=== PATIENT | female | born 1955 | race American Indian/Alaskan Native ===

== ENCOUNTER 2019-03-01 10:32 | Day surgery (SDC) | payer OTHER ==
[~2019-03-01 10:32] MED LIST: ABAT250V; ASPI325 PO; ATEN25 PO; CYCL10 PO; Desyrel150 MG PO; FAMO20 PO; FERR325 PO; HYDACE7.5 PO; LIDO5TP TOP; LORTAB 10-3251 EACH PO; Neurontin300 MG PO; SLEEPING PILL
--- NOTE | 2019-03-01 11:02 | NUR ---
03/01/19 1102 Jayda Soriano PT PRESENTED TO [facility] AND STATED SHE WAS HAVING A CERVIVAL EPIDURAL DONE TODAY. SHE WAS SCHEDULED FOR AN EPIDURAL INJECTION. SHE HAD AN APPROVAL OF MEDICAL COVERAGE FROM [employer] FOR A CERVICAL INJECTION. DECEMBER SPOKE WITH DANELLE AND SHE STATED SHE SHOULD HAVE SCHEDULED THE PATIENT FOR A CERVICAL. PT REQUESTED TO BE RESCHEDULED BECAUSE SHE DRANK JUICE AT 1000 TODAY AND DOES NOT HAVE A RIDE WITH HER, SHE WAS ALSO UNABLE TO CONTACT A RIDE. SHE WAS ADVISED THAT [facility] WILL CONTACT HER NEXT WEEK TO RESCHEDULE THE APPT.
== END 2019-03-01 10:47 | disposition home or self-care (01) ==
LOC: ORSCSDS 10:32
DX: M48.02 Spinal stenosis, cervical region (principal); Z53.9 Procedure and treatment not carried out, unspecified reason
CPT/HCPCS: J1040

== ENCOUNTER 2019-03-15 11:41 | Day surgery (SDC) | payer OTHER, SELFPAY ==
[~2019-03-15] VITALS: Ht 172.7 cm; Wt 56.2 kg
== END 2019-03-15 13:07 | disposition home or self-care (01) ==
LOC: ORSCSDS 11:41
PROVIDERS: Anesthesiology
PROC: 3E0R33Z Introduction of Anti-inflammatory into Spinal Canal, Percutaneous Approach (ICD-10-PCS; principal; 2019-03-15 12:30)
DX: M54.12 Radiculopathy, cervical region (principal); M48.02 Spinal stenosis, cervical region; F32.9 Major depressive disorder, single episode, unspecified; I10 Essential (primary) hypertension; K21.9 Gastro-esophageal reflux disease without esophagitis; E78.00 Pure hypercholesterolemia, unspecified; F17.210 Nicotine dependence, cigarettes, uncomplicated; Z79.899 Other long term (current) drug therapy
CPT/HCPCS: J1040; J2001; J2250; J3010

== ENCOUNTER → 2019-03-28 | Outpatient (CLI) | payer OTHER ==
[2019-03-29 07:13] LABS: Candida species (DNA Probe) Negative (NEGATIVE); G. vaginalis (DNA Probe) Positive (NEGATIVE); T. vaginalis (DNA Probe) Negative (NEGATIVE)
[2019-03-31 14:07] LABS: HPV 16 Negative (Negative); HPV 18 Negative (Negative); HPV OTHER HR TYPES Positive (Negative)
== END | disposition home or self-care (01) ==
LOC: LAB SHORT 16:22 → LAB 16:22
PROVIDERS: Family Medicine
DX: Z01.419 Encounter for gynecological examination (general) (routine) without abnormal findings (principal); R10.30 Lower abdominal pain, unspecified
CPT/HCPCS: 87480; 87510; 87624; 87660; G0145

== ENCOUNTER → 2019-05-31 | Outpatient (CLI) | payer OTHER ==
[2019-05-31 10:56] LABS: Alanine Aminotransfer (ALT/SGP 11 U/L (12-78); Albumin, Blood 2.9 g/dL (3.4-5.0); Albumin/Globulin Ratio 0.9 (0.8-1.8); Alk Phos 138 U/L (50-136); Anion Gap 6 mmol/L (6-16); Aspartate Aminotrans (AST/SGOT 12 U/L (12-37); Bilirubin, Total 0.2 mg/dL (0.1-1.0); Blood Urea Nitrogen 8 mg/dL (8-24); Bun/Creatinine Ratio 12.5 (12.0-20.0); CO2, Blood 27 mmol/L (21-32); Calcium, Blood 8.8 mg/dL (8.5-10.1); Chloride, Blood 105 mmol/L (98-108); Creatinine, Blood 0.64 mg/dL (0.40-1.00); Globulin, Blood 3.3 g/dL (2.2-4.0); Glomerular Filtration Rate >60 (60-); Glucose, Blood 73 mg/dL (70-99); Potassium, Blood 3.8 mmol/L (3.5-5.5); Sodium, Blood 138 mmol/L (136-145); Total Protein, Blood 6.2 g/dL (6.4-8.2)
== END | disposition home or self-care (01) ==
LOC: LAB 10:03 → LAB SHORT 10:03
PROVIDERS: Internal Medicine Hematology & Oncology
DX: M81.0 Age-related osteoporosis without current pathological fracture (principal)
CPT/HCPCS: 80053

== ENCOUNTER → 2020-02-08 | Outpatient (CLI) | payer OTHER | END | disposition home or self-care (01) | LOC: LAB SHORT 15:41 → LAB 15:41 | DX: L98.9 Disorder of the skin and subcutaneous tissue, unspecified (principal) | CPT/HCPCS: 88305 ==

== ENCOUNTER → 2020-05-01 | Outpatient (CLI) | payer OTHER ==
[2020-05-02 17:10] LABS: HPV 16 Negative (Negative); HPV 18 Negative (Negative); HPV OTHER HR TYPES Positive (Negative)
== END | disposition home or self-care (01) ==
LOC: LAB 13:41 → LAB SHORT 13:41
PROVIDERS: Family Medicine
DX: Z12.4 Encounter for screening for malignant neoplasm of cervix (principal); Z11.51 Encounter for screening for human papillomavirus (HPV)
CPT/HCPCS: 87624; 87625; G0123

== ENCOUNTER 2020-06-17 13:45 | Observation (INO) | payer OTHER ==
[~2020-06-17] VITALS: Ht 170.2 cm; Wt 58.5 kg
[~2020-06-17 13:45] MED LIST changes: -FERR325 PO; +FERSU300 PO
[2020-06-17 14:27] LABS: BASOPHILS ABSOLUTE AUTO 0.02 K/mm3 (0.00-0.23); BASOPHILS PERCENT AUTO 0 % (0-2); EOSINOPHILS ABSOLUTE AUTO 0.29 K/mm3 (0.00-0.68); EOSINOPHILS PERCENT AUTO 3 % (0-6); IMMATURE GRAN ABSOLUTE AUTO 0.02 K/mm3 (0.00-0.10); IMMATURE GRAN PERCENT AUTO 0 % (0-1); LYMPHOCYTES PERCENT AUTO 23 % (21-46); MONOCYTES ABSOLUTE AUTO 0.49 K/mm3 (0.16-1.47); MONOCYTES PERCENT AUTO 6 % (4-13); Mean Corpuscular HGB Conc 23.4 g/dL (31.5-36.5); Mean Corpuscular Volume 64 fL (80-100); NEUTROPHILS ABSOLUTE AUTO 5.84 K/mm3 (1.96-9.15); NEUTROPHILS PERCENT AUTO 68 % (41-73); NRBC ABSOLUTE 0.03 K/mm3 (0.00-0.02); NRBC Auto 0.3 /100 WBC (0.0-0.2); Platelet Count 202 K/mm3 (150-400); RDW Coefficient Variation 21.9 % (11.7-14.2); RDW Standard Deviation 49.1 fL (35.1-46.3); Red Blood Cell Count 2.26 M/mm3 (3.80-5.20); White Blood Cell Count 8.66 K/mm3 (4.00-11.30)
[2020-06-17 14:30] LABS: Hematocrit 14.5 % (33.0-51.0); Hemoglobin 3.4 g/dL (11.5-16.0)
[2020-06-17 14:38] LABS: Alanine Aminotransfer (ALT/SGP 8 U/L (12-78); Albumin, Blood 3.2 g/dL (3.4-5.0); Albumin/Globulin Ratio 0.9 (0.8-1.8); Alk Phos 127 U/L (50-136); Anion Gap 7 mmol/L (6-16); Aspartate Aminotrans (AST/SGOT 10 U/L (12-37); Bilirubin, Total 0.3 mg/dL (0.1-1.0); Blood Urea Nitrogen 9 mg/dL (8-24); Bun/Creatinine Ratio 15.4 (12.0-20.0); CO2, Blood 22 mmol/L (21-32); Calcium, Blood 8.8 mg/dL (8.5-10.1); Chloride, Blood 109 mmol/L (98-108); Creatinine, Blood 0.58 mg/dL (0.40-1.00); Globulin, Blood 3.6 g/dL (2.2-4.0); Glomerular Filtration Rate >60 (60-); Glucose, Blood 112 mg/dL (70-99); Sodium, Blood 138 mmol/L (136-145); Total Protein, Blood 6.8 g/dL (6.4-8.2)
[2020-06-17] MEDS ORDERED: TRAZ150T57 PO (15:26)
[2020-06-17] MEDS ORDERED: Cymbalta30 MG PO (15:26)
[2020-06-17] MEDS ORDERED: NEURONTIN600 MG PO (15:26)
[2020-06-17] MEDS ORDERED: OMEP20ER PO (15:26)
[2020-06-17 15:40] LABS: RETICULOCYTE COUNT PERCENT 1.32 % (0.50-2.50)
[2020-06-17 15:49] LABS: Percent Saturation 1.8 % (15.0-50.0)
[2020-06-17 15:56] LABS: International Normalized Ratio 0.98; Prothrombin Time Results 10.5 Sec (9.7-11.5)
[2020-06-17 17:06] LABS: Source, Urine Clean Catch
[2020-06-17 17:11] LABS: Bilirubin, Urine Neg (Neg); Blood, Urine Neg (Neg); Glucose Qualitative, Urine Neg (Neg); Ketones, Urine Neg (Neg); Leukocyte Esterase, Urine 3+ (Neg); Nitrite, Urine Neg (Neg); Protein, Urine Neg (Neg); Urobilinogen, Urine NORM (Normal)
[2020-06-17 17:16] LABS: Appearance, Urine Clear (Clear); Bacteria Mod /hpf; Color, Urine Yellow (P-Yellow); Red Blood Cells, Urine 0-2 /hpf (0-2); Squamous Epithelial Cells Few /hpf (Few)
--- NOTE | 2020-06-17 18:22 | NUR ---
SHIFT SUMMARY PT ADMITTED TO UNIT THIS AFTERNOON. PT ALERT AND ORIENTED. VS STABLE. 02 SATS REMAIN ABOVE 90% ON 2L NC. BP STABLE. HR NSR. PT DENIES ANY PAIN. PT COMPLAINS OF DIZZINESS UPON AMBULATION. FIRST UNIT OF 4 PRBC INFUSING PER ORDERS. PT ORIENTED TO ROOM/UNIT. WILL CONTINUE TO MONITOR CLOSELY AND REPORT TO ONCOMING RN. CALL LIGHT IN REACH. PT CALLING APPROPRIATELY.
[2020-06-18 00:24] LABS: Hematocrit 19.8 % (33.0-51.0)
[2020-06-18 00:28] LABS: Hemoglobin 5.6 g/dL (11.5-16.0)
[2020-06-18 05:33] LABS: Albumin, Blood 3.3 g/dL (3.4-5.0); Anion Gap 5 mmol/L (6-16); Blood Urea Nitrogen 6 mg/dL (8-24); Bun/Creatinine Ratio 10.7 (12.0-20.0); CO2, Blood 27 mmol/L (21-32); Calcium, Blood 8.7 mg/dL (8.5-10.1); Chloride, Blood 105 mmol/L (98-108); Creatinine, Blood 0.56 mg/dL (0.40-1.00); Glomerular Filtration Rate >60 (60-); Glucose, Blood 92 mg/dL (70-99); Phosphorus, Blood 2.3 mg/dL (2.5-4.9); Potassium, Blood 3.5 mmol/L (3.5-5.5); Sodium, Blood 137 mmol/L (136-145)
[2020-06-18 05:48] LABS: BASOPHILS ABSOLUTE AUTO 0.12 K/mm3 (0.00-0.23); BASOPHILS PERCENT AUTO 1 % (0-2); EOSINOPHILS ABSOLUTE AUTO 0.29 K/mm3 (0.00-0.68); EOSINOPHILS PERCENT AUTO 3 % (0-6); Hematocrit 26.3 % (33.0-51.0); Hemoglobin 7.8 g/dL (11.5-16.0); IMMATURE GRAN ABSOLUTE AUTO 0.03 K/mm3 (0.00-0.10); IMMATURE GRAN PERCENT AUTO 0 % (0-1); LYMPHOCYTES ABSOLUTE AUTO 1.43 K/mm3 (0.84-5.20); LYMPHOCYTES PERCENT AUTO 15 % (21-46); MONOCYTES ABSOLUTE AUTO 0.76 K/mm3 (0.16-1.47); MONOCYTES PERCENT AUTO 8 % (4-13); Mean Corpuscular HGB 21.5 pg (26.0-34.0); Mean Corpuscular HGB Conc 29.7 g/dL (31.5-36.5); NEUTROPHILS ABSOLUTE AUTO 7.16 K/mm3 (1.96-9.15); NEUTROPHILS PERCENT AUTO 73 % (41-73); NRBC ABSOLUTE 0.05 K/mm3 (0.00-0.02); NRBC Auto 0.5 /100 WBC (0.0-0.2); Platelet Count 187 K/mm3 (150-400); RDW Coefficient Variation 25.3 % (11.7-14.2); RDW Standard Deviation 65.2 fL (35.1-46.3); Red Blood Cell Count 3.63 M/mm3 (3.80-5.20); White Blood Cell Count 9.79 K/mm3 (4.00-11.30)
[2020-06-18 05:49] LABS: Mean Corpuscular Volume 73 fL (80-100)
--- NOTE | 2020-06-18 06:24 | NUR ---
SHIFT SUMMARY PT WAS AWAKE AND ORIENTED T/O THE NIGHT. 4 UNITS OF PRBC WAS ORDERED, HGB 5.6 AFTER FIRST TWO UNITS. INIATED SECOND ORDER OF 2 MORE UNITS. LAST UNIT FINISHING AROUND [id number]. ALL INFUSIONS HAVE BEEN UNREMARKABLE, PT STATED NO PAIN OR REACTION SYMPTOMS. AFTER SECOND INFUSION, CRACKLES WERE HEARD IN THE LOWER WAHL OF BOTH LUNFS. 40MG FUROSEMIDE IV WAS GIVEN, AFTER THIRD INFISION LUNG SOUNDS WERE CLEAR. BP AND HR REMAINED STABLE T/O NIGHT. PT STATED TAKING "ON AVERAGE ABOUT 6-8 ASPRIN A DAY" TO CONTROL HER CHRONIC PAIN. PT WAS EDUCATED ON THE INDICATIONS OF TAKING SUCH A HIGH DOSE OF ASA. PT DID STATE HAVING LOWER BACK PAIN EARLIER IN THE EVENING, GAVE TRAMADOL AND PT STATED BEING COMFORTABLE THE REST OF THE NIGHT. PAIN STARTED INCREASING THIS MORNING AND TRAMADOL WAS ADMINISTERED AGAIN. WILL CONTINUE TO MONITOR UNTIL SHIFT CHANGE.
--- NOTE | 2020-06-18 12:32 | NUR ---
UPDATE PT TAKEN TO DAY SURGERY FOR SCOPE. WILL AWAIT RETURN.
--- NOTE | 2020-06-18 12:52 | NUR ---
History, Chart, Medications and Allergies reviewed before start of procedure.Lungs clear T/O to Auscultation. Patient confirms NPO status and agrees with scheduled surgery.
--- NOTE | 2020-06-18 13:05 | NUR ---
06/18/20 1305 Tali Bradley History, Chart, Medications and Allergies reviewed before start of procedure. Patient confirms NPO status and agrees with scheduled surgery.PATIENT DETERMINED TO BE ASA APPROPRIATE FOR PROPOFOL SEDATION PRIOR TO START OF PROCEDURE BY DR. SIERRA. 3-LEAD EKG REVIEWED WITH PHYSICIAN PRIOR TO START OF PROCEDURE. MONITOR INTACT WITH CONTINUOUS PULSE OXIMETRY AND INTERMITTENT BP.
--- NOTE | 2020-06-18 14:20 | NUR ---
UPDATE PT RETURNED FROM DAY SURGERY AFTER SCOPE. VS STABLE. O2 SATS REMAIN ABOVE 90% ON RA. BP STABLE. PT ALERT AND AWAKE. PT DENIES ANY PAIN. WILL CONTINUE TO MONTIOR CLOSELY.
[2020-06-18] MEDS ORDERED: TRAM50 PO (16:00)
[2020-06-18] MEDS ORDERED: ACET325 PO (16:00)
[2020-06-18] MEDS ORDERED: FERRLECIT (16:03)
[2020-06-18] MEDS ORDERED: FERRLECIT IV (16:05)
--- NOTE | 2020-06-18 16:52 | NUR ---
DISCHARGE DISCHARGE INSTRUCTIONS PROVIDED TO PT. PT EDUCATED ON NEW MEDICATIONS AND FOLLOW-UP APPOINTMENTS. IV REMOVED. ALL QUESTIONS ANSWERED. PT TAKEN OUT BY SUZAN.
== END 2020-06-18 16:45 | disposition home or self-care (01) ==
LOC: ER 13:45 → PCU 13:47 → ER 15:14 → PCU 15:14
PROVIDERS: Emergency Medicine; Internal Medicine Gastroenterology; Physician Assistant; ADMIT Family Medicine
PROC: 0DB58ZZ Excision of Esophagus, Via Natural or Artificial Opening Endoscopic (ICD-10-PCS; principal; 2020-06-18 12:30)
PROC: 0DB98ZX Excision of Duodenum, Via Natural or Artificial Opening Endoscopic, Diagnostic (ICD-10-PCS; principal; 2020-06-18 12:30)
DX: D50.9 Iron deficiency anemia, unspecified (principal); K21.0 Gastro-esophageal reflux disease with esophagitis; Z20.828 Contact with and (suspected) exposure to other viral communicable diseases; K29.50 Unspecified chronic gastritis without bleeding; K31.5 Obstruction of duodenum; I10 Essential (primary) hypertension; M79.7 Fibromyalgia; M48.00 Spinal stenosis, site unspecified; D69.2 Other nonthrombocytopenic purpura; Z79.899 Other long term (current) drug therapy; Z71.6 Tobacco abuse counseling; G62.9 Polyneuropathy, unspecified; F17.210 Nicotine dependence, cigarettes, uncomplicated; F32.9 Major depressive disorder, single episode, unspecified
CPT/HCPCS: 36415; 36430; 80053; 80069; 81001; 82272; 82607; 82728; 82746; 83540; 83550; 83690; 85014; 85018; 85025; 85045; 85610; 85730; 86850; 86900; 86901; 86923; 87086; 88305; 88312; 88342; 99284-25; C9113; G0378; J1940; J2704; J2916; J7030; J7120; P9016; U0002

== ENCOUNTER → 2020-07-11 | Outpatient (CLI) | payer OTHER ==
[~2020-07-11] MED LIST changes: +ACET325 PO; +Cymbalta30 MG PO; +FERRLECIT; +FERRLECIT IV; +NEURONTIN600 MG PO; +OMEP20ER PO; +TRAM50 PO; +TRAZ150T57 PO
[2020-07-11 11:14] LABS: BASOPHILS PERCENT AUTO 2 % (0-2); EOSINOPHILS ABSOLUTE AUTO 0.38 K/mm3 (0.00-0.68); EOSINOPHILS PERCENT AUTO 4 % (0-6); Hematocrit 47.2 % (33.0-51.0); IMMATURE GRAN ABSOLUTE AUTO 0.01 K/mm3 (0.00-0.10); IMMATURE GRAN PERCENT AUTO 0 % (0-1); LYMPHOCYTES ABSOLUTE AUTO 2.34 K/mm3 (0.84-5.20); LYMPHOCYTES PERCENT AUTO 27 % (21-46); MONOCYTES ABSOLUTE AUTO 0.68 K/mm3 (0.16-1.47); MONOCYTES PERCENT AUTO 8 % (4-13); Mean Corpuscular HGB 27.2 pg (26.0-34.0); Mean Corpuscular HGB Conc 29.7 g/dL (31.5-36.5); Mean Corpuscular Volume 92 fL (80-100); NEUTROPHILS ABSOLUTE AUTO 5.15 K/mm3 (1.96-9.15); NEUTROPHILS PERCENT AUTO 59 % (41-73); Platelet Count 258 K/mm3 (150-400); RDW Standard Deviation 92.2 fL (35.1-46.3); Red Blood Cell Count 5.15 M/mm3 (3.80-5.20); White Blood Cell Count 8.76 K/mm3 (4.00-11.30)
== END ==
LOC: LAB 10:52 → LAB SHORT 10:52
PROVIDERS: Registered Nurse Oncology
DX: D64.9 Anemia, unspecified (principal)
CPT/HCPCS: 85025

== ENCOUNTER 2023-11-06 15:23 | Inpatient (IN) | payer OTHER ==
[~2023-11-06] VITALS: Ht 165.1 cm; Wt 54.4 kg
[2023-11-06] MEDS ORDERED: Neurontin800 MG PO (16:35)
[2023-11-06] MEDS ORDERED: HYDROCODONE-AC1 EA19 PO (16:35)
[2023-11-06] MEDS ORDERED: HYDROCODONE-AC1 EAC7 PO (16:35)
[2023-11-06] MEDS ORDERED: NS 1,000 ML IV SCH ×3 (16:40→19:00)
[2023-11-06] MEDS ORDERED: Morphine Sulfate 10 MG/ML 1MLSYR IV ONE (16:40)
[2023-11-06] MEDS ORDERED: Ondansetron HCl 2 MG / ML 2ML Vial IV ONE (16:40)
[2023-11-06 17:05] LABS: BASOPHILS ABSOLUTE AUTO 0.05 K/mm3 (0.00-0.23); BASOPHILS PERCENT AUTO 0 % (0-2); EOSINOPHILS PERCENT AUTO 0 % (0-6); Hematocrit 34.5 % (33.0-51.0); Hemoglobin 11.2 g/dL (11.5-16.0); IMMATURE GRAN ABSOLUTE AUTO 0.21 K/mm3 (0.00-0.10); IMMATURE GRAN PERCENT AUTO 1 % (0-1); LYMPHOCYTES ABSOLUTE AUTO 1.59 K/mm3 (0.84-5.20); LYMPHOCYTES PERCENT AUTO 7 % (21-46); MONOCYTES PERCENT AUTO 7 % (4-13); Mean Corpuscular HGB 34.5 pg (26.0-34.0); Mean Corpuscular HGB Conc 32.5 g/dL (31.5-36.5); Mean Corpuscular Volume 106 fL (80-100); NEUTROPHILS ABSOLUTE AUTO 20.66 K/mm3 (1.96-9.15); NEUTROPHILS PERCENT AUTO 86 % (41-73); Platelet Count 319 K/mm3 (150-400); RDW Coefficient Variation 19.4 % (11.7-14.2); RDW Standard Deviation 74.7 fL (35.1-46.3); Red Blood Cell Count 3.25 M/mm3 (3.80-5.20); White Blood Cell Count 24.11 K/mm3 (4.00-11.30)
[2023-11-06] MEDS ORDERED: HYDROmorphone HCl/Pf 1MG SYR IV ONE (17:05)
[2023-11-06 17:12] LABS: Albumin, Blood 2.4 g/dL (3.4-5.0); Albumin/Globulin Ratio 0.5 (0.8-1.8); Bilirubin, Direct 0.1 mg/dL (0.0-0.3); Bilirubin, Indirect 0.2 mg/dL (0.1-0.7); Bilirubin, Total 0.3 mg/dL (0.1-1.0); Bun/Creatinine Ratio 50.9 (12.0-20.0); Calcium, Blood 9.1 mg/dL (8.5-10.1); Creatinine, Blood 0.51 mg/dL (0.40-1.00); Globulin, Blood 4.7 g/dL (2.2-4.0); Magnesium, Blood 1.9 mg/dL (1.6-2.4); Potassium, Blood 3.4 mmol/L (3.5-5.5); Total Protein, Blood 7.1 g/dL (6.4-8.2)
[2023-11-06] MEDS ORDERED: Cefepime HCl 2,000 MG in NS 50 ML IV ONE (17:30)
[2023-11-06] MEDS ORDERED: Potassium Chl 20MEQ/Water100ML 100 ML IV ONE (17:30)
[2023-11-06 17:44] LABS: Influenza A, PCR NEGATIVE (NEGATIVE); Influenza B, PCR NEGATIVE (NEGATIVE); Resp Syncytial Virus, PCR NEGATIVE (NEGATIVE); SARS-Cov-2 (COVID-19) PCR, MMC NEGATIVE (NEGATIVE)
[2023-11-06] MEDS ORDERED: Azithromycin 500 MG in NS 250 ML IV ONE (17:50)
[2023-11-06] MEDS ORDERED: Prochlorperazine Edisylate 10 mg Vial IV PRN (18:30)
[2023-11-06] MEDS ORDERED: Ondansetron HCl 2 MG / ML 2ML Vial IV PRN (18:30)
[2023-11-06] MEDS ORDERED: HYDROcodone 10-APAP 325 TAB PO PRN (18:30)
[2023-11-06] MEDS ORDERED: FLU VACC QS2023-24(6MOS UP)/PF 60 MCG/0.5 ML SYRINGE IM SCH (18:35)
[2023-11-06] MEDS ORDERED: Naloxone HCl 0.4MG / ML 1ML Vial IV PRN (18:35)
[2023-11-06] MEDS ORDERED: Acetaminophen 325 MG TABLET PO PRN (18:35)
[2023-11-06] MEDS ORDERED: FentaNYL Citrate 50 MCG/ML 2 ML Injection IV PRN (18:35)
[2023-11-06] MEDS ORDERED: HYDROcodone 5-APAP 325 TAB PO PRN (19:40)
[2023-11-06] MEDS ORDERED: Gabapentin 400 MG Cap PO SCH (20:00)
[2023-11-06] MEDS ORDERED: Lactobacil 2-S.Thermo-Bifido 1 1 Cap PO SCH (21:00)
[2023-11-06] MEDS ORDERED: Docusate Sodium 100 MG Cap PO SCH (21:00)
[2023-11-06] MEDS ORDERED: NS 1,000 ML IV ONE (21:02)
[2023-11-06 21:30] LABS: Source, Urine Clean Catch
[2023-11-06 21:38] LABS: Bilirubin, Urine Neg (Neg); Blood, Urine Neg (Neg); Glucose Qualitative, Urine Neg (Neg); Ketones, Urine Neg (Neg); Leukocyte Esterase, Urine Neg (Neg); Nitrite, Urine Neg (Neg); Protein, Urine 2+ (Neg); Specific Gravity, Urine 1.015 (1.003-1.022); Urobilinogen, Urine NORM (Normal)
[2023-11-06 21:41] VITALS: BP 117/98
[2023-11-06 21:47] LABS: Appearance, Urine Clear (Clear); Color, Urine Yellow (P-Yellow)
[2023-11-06] MEDS ORDERED: COLACE100 MG PO (21:47)
[2023-11-06 21:48] LABS: Amorphous Light (0-Heavy); Bacteria Few /hpf; Mucus Light (0-Heavy); Red Blood Cells, Urine 0-2 /hpf (0-2); Squamous Epithelial Cells Few /hpf (Few); White Blood Cells, Urine 0-2 /hpf (0-5)
[2023-11-06] MEDS ORDERED: FOLI1 PO (21:49)
[2023-11-06] MEDS ORDERED: CYCL10 PO (21:51)
[2023-11-06] MEDS ORDERED: HYDROmorphone HCl/Pf 1MG SYR IV PRN (23:10)
[2023-11-06] MEDS ORDERED: Nystatin 100,000 Unit/ML Susp 5 ML UDC MT SCH (23:30)
[2023-11-07] MEDS ORDERED: Cefepime HCl 2,000 MG in NS 100 ML IV SCH (01:00)
[2023-11-07] MEDS ORDERED: OxyCODONE HCL 5 MG TAB PO PRN (01:40)
[2023-11-07 03:21] VITALS: BP 119/87
[2023-11-07] MEDS ORDERED: Cyclobenzaprine HCl 10 MG Tab PO PRN (05:05)
[2023-11-07] MEDS ORDERED: HYDROmorphone HCl/Pf 1MG SYR IV PRN (05:10)
[2023-11-07 06:18] LABS: BASOPHILS ABSOLUTE AUTO 0.05 K/mm3 (0.00-0.23); BASOPHILS PERCENT AUTO 0 % (0-2); EOSINOPHILS ABSOLUTE AUTO 0.05 K/mm3 (0.00-0.68); EOSINOPHILS PERCENT AUTO 0 % (0-6); Hematocrit 29.8 % (33.0-51.0); Hemoglobin 9.5 g/dL (11.5-16.0); IMMATURE GRAN ABSOLUTE AUTO 0.09 K/mm3 (0.00-0.10); IMMATURE GRAN PERCENT AUTO 1 % (0-1); LYMPHOCYTES ABSOLUTE AUTO 1.37 K/mm3 (0.84-5.20); LYMPHOCYTES PERCENT AUTO 9 % (21-46); MONOCYTES ABSOLUTE AUTO 1.24 K/mm3 (0.16-1.47); MONOCYTES PERCENT AUTO 8 % (4-13); Mean Corpuscular HGB 34.3 pg (26.0-34.0); Mean Corpuscular HGB Conc 31.9 g/dL (31.5-36.5); Mean Corpuscular Volume 108 fL (80-100); Mean Platelet Volume 10.8 fL (9.1-12.4); NEUTROPHILS ABSOLUTE AUTO 13.14 K/mm3 (1.96-9.15); NEUTROPHILS PERCENT AUTO 82 % (41-73); Platelet Count 245 K/mm3 (150-400); RDW Coefficient Variation 19.7 % (11.7-14.2); RDW Standard Deviation 76.9 fL (35.1-46.3); Red Blood Cell Count 2.77 M/mm3 (3.80-5.20); White Blood Cell Count 15.94 K/mm3 (4.00-11.30)
--- NOTE | 2023-11-07 06:29 | NUR ---
T/F AND SUMMARY: REPORT RECIEVED FROM RIO (MANAGER SPECIAL EVENTS) AT 2100 AND PT T/F TO ROOM 344 AT 2135. SHE'S A/OX4, WAS ORIENTED TO ROOM AND CALL SYSTEM AND [place] [facility] [place] PT IS WEAK, DECONDITIONED AND APPEARS CACHECTIC W/PALE DUSKY COLORING. BEDSIDE SWALLOW EVAL PASSED AND PT COMMENCED ON FULL LIQUID DIET W/PILLS CRUSHED IN APPLESAUCE R/T THROAT PAIN. THROAT APPEARS WHITE W/POSSIBLE THRUSH AND NYSTATIN SWISH/SWALLOW WAS RX'D AND COMMENCED. NS IS INFUSING FOR DEHDRATION AND IV ABX RECIEVED PER EMAR. SHE HAD X1 DOSE PRN COMPAZINE FOR TOLERABLE RELIEF OF NAGGING NAUSEA AND HASN'T REQUIRED ANTIMEMETICS SINCE. PAIN CONTROL HAS BEEN THE PRIMARY ISSUE THIS SHIFT THOUGH. SHE REPORTS 8-10/10 STABBING PAIN T/O BACK AND RADIATING DOWN L.LEG. SHE INITIALLY RECIEVED NORCO 5MG PRN FOR NO EFFECT. MD NOTIFIED AND DILUADID 0.5MG IV PRN RX'D AND RECIEVED FOR VERY BRIEF RELIEF. SHE SLEPT APPROX 1 HOUR THEN AWOKE IN WORSE PAIN AGAIN. MD NOTIFIED W/NORCO DC'D AND OXYCODONE 5-10MG RX'D INSTEAD. PT PROVIDED OXYCODONE 10MG W/TYLENOL 65OMG PRN FOR VERY MINIMAL EFFECT. MD ALERTED TO CONTINUED PAIN DESPITE FREQ MEDS AND HE CHANGED DILAUDID TO 1-2MG Q4H PRN W/ADDITION OF FLEXERIL 10MG Q8 PRN. PT WAS ALSO COMMENCED ON CONT BIOX FOR O2 SAT MONITORING. 1MG DILAUDID AND 10MG FLEXERIL GIVEN AND PT NOW REPORTS 7/10 PAIN. SHE CONT'S TO MOAN AND IS OBSERVED TO BE FIGITY AT TIMES BUT APPEARS TO BE RESTING SLIGHTLY MORE COMFORTABLY. 2L O2 VIA NC WAS APPLIED THOUGH FOR O2 DESAT TO 84% ON RA W/O S/S RESP DISTRESS. ALL OTHER VSS AND NO ACUTE CHANGES. WCTM AND REPORT TO DAY RN.
[2023-11-07 07:02] LABS: Albumin, Blood 2.2 g/dL (3.4-5.0); Albumin/Globulin Ratio 0.6 (0.8-1.8); Bilirubin, Total 0.4 mg/dL (0.1-1.0); Calcium, Blood 8.4 mg/dL (8.5-10.1); Creatinine, Blood 0.42 mg/dL (0.40-1.00); Magnesium, Blood 1.9 mg/dL (1.6-2.4); Potassium, Blood 3.7 mmol/L (3.5-5.5); Total Protein, Blood 6.2 g/dL (6.4-8.2)
[2023-11-07 07:28] VITALS: BP 123/82
[2023-11-07] MEDS ORDERED: Enoxaparin 40 MG/0.4 ML SYR SC SCH (09:00)
[2023-11-07] MEDS ORDERED: LORazepam 1 MG Tab PO PRN (15:50)
[2023-11-07 15:53] VITALS: BP 114/73
[2023-11-07] MEDS ORDERED: Morphine Sulfate 10 MG/ML 1MLSYR INH PRN ×2 (15:55→22:30)
[2023-11-07] MEDS ORDERED: Promethazine HCl 25 MG Tab PO PRN (15:55)
[2023-11-07] MEDS ORDERED: Morphine Sulfate 20 MG/1ML 1 ML Oral Syringe SL PRN (15:55)
[2023-11-07] MEDS ORDERED: Acetaminophen 325 MG TABLET PO PRN (15:55)
--- NOTE | 2023-11-07 15:59 | NUR ---
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id number] OF DISEASE. PT CALL LIGHT IN REACH. PT ABLE TO MAKE NEEDS KNOWN AND CALLS APPROPRIATELY. ALT PAIN MNG WITH HEATING PAD AND REPOSITIONING; VERY LITTLE RELIEF.
--- NOTE | 2023-11-07 16:03 | NUR ---
Goals Of Care, Status Change to Comfort Care Care team (Dr. Dobbs, Primary RN and PC RN) met with pt and family in pt's room. Dr. Dobbs reviewed imaging results and new metestatic cancer dx. Pt stated multipule times, "I want to go home to ." Dtr is wrecked with anticipatory grief and guilt. Pt is consoling dtr. Short life review facilitated with recent decline in health status. Chelle reports not having any S/Sx of lung cancer. It was discovered on pre-op imaging for back surgery in April. Pt had 4 rounds of chemo. Chelle has suffered from chronic back pain for years. Dr. Ferrer has been seeing pt for pain management. Chelle came in to the ED for n/v and uncontrolled pain. Symptoms have rapidly increased in the last 2 weeks. 6 mo ago: PPS 80%, ambulating with a cane, eating small meals (baseline) 3 mo ago: PPS 60%, ambulating with cane/walker intermittently, po intake decreased to full liquids (cream soup, yogurt, Boost) Now: PPS 40%, difficult to stand for transfers. The last 2 weeks, not tolerating po intake, including water. Last BM was greater than a week ago. Chelle would like to shift focus of her care to comfort rather than currative d/t poor prognosis. New POLST filled out with Chelle, daughter Penny and brother Ruel present. Dr. Dobbs reports he will put in orders. PC will remain available as needed for support. N
[2023-11-08] MEDS ORDERED: FentaNYL 25 MCG Patch TOP SCH (01:35)
[2023-11-08] MEDS ORDERED: OxyCODONE HCL 10 MG TABCR PO SCH (01:41)
--- NOTE | 2023-11-08 06:43 | NUR ---
SUMMARY: PT REMAINS ON COMFORT MEASURES IN SIGNIFICANT PAIN WHEN AWAKE. SHE BEGAN SHIFT SLEEPING COMFORTABLY W/O S/S DISTRESS BUT AWOKE DISORIENTED W/STABBING BACK AND L.LEG PAIN ONCE AGAIN. SIMPLE REMINDERS WERE PROVIDED RE: SITUATION/PLACE AND SHE WAS ABLE TO ANSWER Q'S APPROPRIATELY AND SPECIFY NEEDS. PAIN CONTROL REMAINS PRIMARY COMPLAINT AND PT DENIES N/V. ROXINOL 20MG SL AND ATIVAN 1MG PO PRN WERE RECIEVED W/SCHEDULED GABAPENTIN NEAR 0035 FOR NO EFFECT. 2ND DOSES OF ROXINOL + ATIVAN WERE PROVIDED W/TYLENOL 650MG PO PRN APPROX 1 HOUR LATER AT 0135 FOR VERY MINIMAL IMPROVEMENT. SHE CONT'D TO BE RESTLESS, FIGITY AND MOANING OFTEN. MD WAS NOTIFIED AND SCHEDULED OXYCONTIN 10MG BID WAS RX'D AND RECIEVED W/DILAUDID 1MG IV PRN AT 0225. PT EVENTUALLY FELL ASLEEP FOLLOWING THESE DOSES AND SHE'S BEEN LEFT UNDISTURBED TO PROMOTE SLEEP/REST SINCE. HEAT/ICE BEING UTILIZED IN ROTATION AND TV IS ON PER REQUEST DISTRACTION. SHE WAS UP ONCE TO BSC W/1-2PA AND FWW TO VOID BUT IS NOW ON BEDREST FOR INCREASED WEAKNESS AND LIMITED MOBILITY R/T PAIN. PUREWIC CATH WAS PLACED BUT THERE'S BEEN NO UO SINCE. SHE DANGLES AT EOB AT TIMES AND SIPS ARE ENCOURAGED BUT PT CONT'S TO HAVE POOR APPETITE. CONT BIOX REMAINS IN PLACE FOR 02 MONITORING FROM SEDATING MEDS. NO ACUTE CHANGES, WCTM AND REPORT TO DAY RN.
--- NOTE | 2023-11-08 07:00 | NUR ---
ASSUMED CARE OF PT- BEDSIDE REPORT COMPLETED WITH NIGHT RN. PER REPORT PT PAIN WAS WELL MANAGED AT THE START OF CHEF DE PARTIE. PT APPEARED TO BE RESTING COMFORTABLY. THEN SHE WOKE AT 0000 IN LARGE AMOUNTS OF PAIN THAT TOOK HOURS TO CONTROL SO THE PT WAS ABLE TO FALL BACK TO SLEEP. LAST MEDS AROUND 0330, PT APPEARS TO BE RESTING COMFORTABLY HOWEVER PAUL MEDICATE TO PREVENT PAIN FROM BEING OUT OF CONTROL.
--- NOTE | 2023-11-08 07:45 | NUR ---
MEDICATED PT FOR PAIN- PT WOKE AND NEEDED TO USE THE BATHROOM. SHE DOES NOT SEEM TO UNDERSTAND THE PUREWIC AND IS ASSISTED TO THE BSC 2P HEAVY ASSIST. PT STATES PAIN 04/05. MEDICATED WITH 20MG ROXANOL AT THIS TIME.
--- NOTE | 2023-11-08 10:26 | NUR ---
PT MEDICATED FOR PAIN- PT RATES CURRENT PAIN 6/10 LAST RATING WAS 4/10. PT AGREES PAIN IS INCREASING AND SAID YES TO OFFERED PAIN MEDICATION. MEDICATED WITH 20MG ROXANOL. PT HAS A Hx OF PAIN BECOMING OUT OF CONTROL AND BEING DIFFICULT TO GET IT BACK INTO CONTROL.
--- NOTE | 2023-11-08 11:36 | NUR ---
PT CALLED WITH NEED TO URINATE- PT HAS A PUREWICK IN PLACE, BUT IS UNABLE TO VOID WITH IT. REMOVED AND ASSISTED THE PT TO THE BED CAMARILLO, SHE VOIDED 100ML. PT C/O PAIN AND REQUESTED PAIN MEDICINE AGAIN. MEDICATED WITH ROXANOL. PT TOO WEAK TO GET TO BSC, SHE REQUESTED THE BED CAMARILLO A FEW MINUTES AFTER USING THE BED CAMARILLO. SPOKE TO THE PT ABOUT PLACING A CATHETER TO KEEP HER BLADDER DRAINED AND HELP HER TO BE MORE COMFORTABLE. SHE AGREED "THAT SOUNDS LIKE A GOOD IDEA" SHE DID SAY SHE HAS NEVER HAD A CATHETER BEFORE. CALLED DR STEPHENSON AND RECIEVED AN ORDER FOR A HAM CATH PLACEMENT FOR COMFORT AT [facility].
[2023-11-08 12:25] LABS: Source, Urine Foley catheter
[2023-11-08 13:18] LABS: Appearance, Urine Clear (Clear); Bilirubin, Urine Neg (Neg); Blood, Urine Neg (Neg); Color, Urine Yellow (P-Yellow); Glucose Qualitative, Urine Neg (Neg); Ketones, Urine 1+ (Neg); Leukocyte Esterase, Urine Neg (Neg); Nitrite, Urine Neg (Neg); Protein, Urine 1+ (Neg); Urobilinogen, Urine NORM (Normal)
--- NOTE | 2023-11-08 16:59 | NUR ---
Symptom Management Supportive Visit Plan: Optimize pt prior to d/c home with hospice. Abx, bowel care and probiotics to be continued this admission to assist with comfort and quality of life. Primary RN reports pain was not well managed t/o last night and is currently being agressive with interventions. This PC RN assisted Primary RN with catheter placement. There was immediate 300 mL output. Chelle reports great relief and less pressure after catheter placement. This PC RN phoned Dr. Dobbs and received order to add tylenol suppository.
--- NOTE | 2023-11-08 17:30 | NUR ---
SHIFT SUMMARY- PT PAIN HAS BEEN WELL MANAGED T/O THE DAY. THE BEST TIME FRAME WAS AFTER THE PLACEMENT OF THE HAM. BT PRESENT AND HYPERACTIVE AFTER HAM PLACEMENT. PT HAD A SMEAR AFTER THE HAM WAS PLACED. SHE HAS PINK SCARRED LOOKING SKIN IN THE GLUTEAL FOLDS AND LABIA. PT DECLINED PAIN MEDS FOR SEVERAL HOURS TODAY BECAUSE SHE WANTED TO BE "CLEAR HEADED ENOUGH TO SIGN PAPERS FOR" HER DAUGHTER TO PAY HER BILLS FOR HER. DAUGHTER HAS BEEN IN OFF AND ON T/O THE DAY TODAY. THIS EVENING SOON THE PAPERS WERE SIGNED THE PT CALLED FOR PAIN MEDS. SHE VISITED WITH HER SIBLINGS AND THEN FELL ASLEEP. SHE REMAINS ASLEEP AT THIS TIME AND APPEARS TO BE COMFORTABLE.WILL REASSESS PAIN MED NEEDS PRIOR TO SHIFT CHANGE. NO CURRENT S&S OF DISTRESS NOTED.
--- NOTE | 2023-11-09 04:08 | NUR ---
Shift Summary Patient is a 68 year old female admitted with Nausea/Vomiting and pain. She has metastatic lung cancer and is on comfort measures. She has been repositioned for comfort. Pain has been monitored and medications given as needed to keep pain under control. She has been able to sleep between doses of pain medication. Respirations are regular and unlabored. Skin is warm and dry. She has oxygen per nasal cannula at 3L. She has an IV in her left forearm that is saline locked. Alcantar catheter is in place with lauren urine noted in drainage bag. Patient is pleasant and coopertive with care. She is given reminders to tell us when the pain starts so that we can keep it under control. I have also monitored for signs of pain when patient is sleeping and aroused her to see if she needed medication if she is showing signs of being in pain. Bed is in low position with call light in reach. Side rails up x 2. The plan is for her to go home with hospice care.
--- NOTE | 2023-11-09 09:37 | NUR ---
Called to see pt nursing noted hands and feet getting more ashen. Pt respiration are even. pt awakens and can aswer a few questions. Goal is to get her home. Nursing relayed the stress the daughter is having with her mothers needs and financial difficuties. Will have the social science instructor help her with her needs.
--- NOTE | 2023-11-09 13:33 | NUR ---
Spiritual care visit conducted. Patient is sitting up in bed and resting. She wakes up easily to DOMINIK Tsang's voice and welcomes conversation with me. She starts out talkative but quickly runs out of energy. She is able to tell me that she is not doing well physically or emotionally. She states that she is worried about her daughter and her own path. She begins to fade and fall asleep in the middle of her senctence. I ask if I could pray for her and she welcomes prayer. I gladly provide prayer while kneeling and holding the patient's hand. She watches me during the prayer and at its conclusion she immediately says that the prayer was meaningful and uplifting. I try further discussion but she is too exhausted. I will continue to remain available to patient and family.
--- NOTE | 2023-11-09 20:13 | NUR ---
SHIFT SUMARY- PT ALERT AND ORIENTED TO SELF AND FAMILY. PT HAS HAD A LOT OF PAIN OFF AND ON T/O THE DAY, SHE HAS BEEN REPOSITIONED SHE WILL ALLOW. THE PT DAUGHTER IS AT THE BEDSIDE. THIS RN SPOKE TO THE PT DAUGHTER SHE WAS ABOUT TO LEAVE. THE PT HAD CONVEYED TO STAFF THAT SHE WANTS TO MAKE SURE HER DAUGHTER IS OK. SPOKE TO THE DAUGHTER IN PRIVATE AND WAS ABLE TO CONVEY TO HER THAT THE PT NEEDS TO KNOW SHE IS OK, THE BEST WAY TO DO THAT IS TO LET THE PT SEE HER AND KNOW SHE IS THERE. SHE IS STAYING THE NIGHT WITH THE PT. THE PT WAS MEDICATED FOR PAIN NEEDED, SHE REMOVED HER NC O2 THIS AFTERNOON WHILE SHE HAD FAMILY VISITING. OFFERED TO PUT IT BACK ON OR HER AND THE PT DECLINED. THE PT WAS A LITTLE ANXIOUS THIS EVENING AT SHIFT CHANGE SHE REQUESTED PAIN MEDS AND SOMETHING FOR ANXIETY, WHEN OFFERED. ATIVAN WAS MIXED WITH THE ROXINOL. PT WAS ASSISTED TO REPOSITION WITH THE ASSISTANCE OF THE NIGHT RN; BEDSIDE REPORT COMPLETED. PT RELAXED AND BEGAN TO REST PEACEFULLY. PT DAUGHTER STATED THAT THE PT HAS BEEN HAVING PAUSES IN HER RESPIRATIONS, THIS RN HAS NOT SEEN ANY. THIS MORNING BLUEING WAS NOTED ON THE PT HANDS AND FEET. CALLED THE PALLIATIVE CARE RN WHO DID NOT FEEL LIKE THE PT WAS IMINENT, PT IS MOVING FORWARD THROUGH THE STAGES THIS EVENING ALTHOUGH SHE IS STILL WAKING AND TALKING TO HER DAUGHTER.
[2023-11-09] MEDS ORDERED: Gabapentin 300 MG Cap PO SCH (21:00)
--- NOTE | 2023-11-10 05:26 | NUR ---
SHIFT SUMMARY PT A&OX3 AT START OF SHIFT. PT ANXIOUS AT TIMES AND MEDICATED PER EMAR. PT ALSO MEDICATED FOR AIR HUNGER AND PAIN PER EMAR. PT'S RESPIRATIONS NOTED TO HAVE OCCASIONAL PAUSES. UPDATED SISTER ON PT'S CONDITION AT START OF SHIFT PT'S SISTERS BROUGHT IN PT'S DOG, DEVIN, TO PROVIDE SOME COMFORT. DOG HAS BEEN SLEEPING WITH PT T/O NIGHT. SISTER'S DID NOT STAY LONG. DUAGHTER HAS BEEN AT BEDSIDE T/O NIGHT. PT APPEARS COMFORTABLE AT THIS TIME WITHOUT S/S OF PAIN OR DISTRESS. BED IN LOWEST POSITION AND CALL LIGHT IN REACH.
--- NOTE | 2023-11-10 08:40 | NUR ---
CALLED PALLIATIVE CARE TO THE BEDSIDE- PT HAS TRANSITIONED TO ACTIVELY DYING. DC ORDER IS IN, HOWEVER PT IS NOT STABLE ENOUGH FOR DISCHARGE. PT MEDICATED FOR AIR HUNGER WITH 20MG OF ROXANOL. RESP RATE ELEVATED AND SHALLOW. AFTER MED RESP RATE RREDUCED AND PT APPEARS MORE RELAXED AND LESS DISTRESSED.
--- NOTE | 2023-11-10 08:51 | NUR ---
MD AT THE BEDSIDE- HE IS AWARE THE PT IS ACTIVELY DYING AND SHOULD NOT BE TRANSPORTED. ALL NON CC MEDS WILL BE DC'D BY PALLIATIVE CARE RN. DAUGHTER IS AWARE THE DISCHARGE IS BEING CANCELLED.
--- NOTE | 2023-11-10 09:29 | NUR ---
Actively Transitionimg Called to room by Primary RNTrinh. Pt's respirations have changed. Chelle is open mouth breathing with accessory muscle use. Trinh, RN to administer Roxanol. This PC RN does not believe pt would make transport home, she would likely in route home. Mottling noted to toes and knees, bilat. Hands are hot, sweaty and edematous. Ring on right hand removed and given to Darrius. Edema is too great to remove rings on left hand. Dtr, Darrius is very overwhelmed. She and Chelle's dog, Chantel were able to spend last night with Chelle. Chantel is calm and laying on Chelle. Call to Valdo Moreno. He will follow up with pt/family today.
--- NOTE | 2023-11-10 12:53 | NUR ---
Spiritual care visit conducted. Patient's brother, Ruel is bedside but leaves the room to allow for privacy sake. Patient awakens enough to say that its hard for her and she heartly agrees with prayer, which I provide. She mouths, "Thank you" after the prayer. She does not answer any questions after that and goes back to resting. I then call Ruel back into the room and we chat a bit about the family dynamic and how he is holding up but he does not engage deeply in conversation. I will continue to remain available to patient and family.
--- NOTE | 2023-11-10 14:00 | NUR ---
TOD 1400- PT FAMILY CAME OUT AND TOLD STAFF THEY BELIEVED THE PT HAD PASSED CONFIRMED TOD WITH DOMINIK WALLER. NO BREATH SOUNDS OR HEART TONES AUDIBLE AT 1400. FAMILY IS AWARE. DR STEPHENSON NOTIFIED, [employer] MATE NOTIFIED, PALLIATIVE CARE NOTIFIED SPIRITUAL CARE WAS CALLED TO THE BEDSIDE.
--- NOTE | 2023-11-10 15:01 | NUR ---
Spiritual care visit conducted. Grief support given to family and friends, end of life prayer provided and theological insights delivered for the comfort of all present.
--- NOTE | 2023-11-10 16:04 | NUR ---
Called to room by Primary RN. Chelle passed at 1400. Dtr Darrius, friend Gena and friend Angely present in the room. Chelle appears peaceful. Gena reports Chelle's breathing changed once Angely told her she would look out for Darrius. Chelle passed moments later. Gena reports pt had always talked about her son being an ilya. Today is the anniversary of his passing. Pt's brother, Ruel stated this morning he would like Chelle to be cared for by Lucian Parks of [facility]. Dtr and friends are in agreement. commercial energy auditor notified of familys request. Joint visit with Valdo Moreno.
== END 2023-11-10 14:00 | DRG 177 ==
LOC: ER 15:23 → MEDS 15:24 → ERHOLD 15:24 → ER 15:24 → MEDS 15:24 → ERHOLD 21:32 → MEDS 21:32
PROVIDERS: Internal Medicine; Student in an Organized Health Care Education/Training Program; ADMIT Student in an Organized Health Care Education/Training Program
DX: J69.0 Pneumonitis due to inhalation of food and vomit (principal); E43 Unspecified severe protein-calorie malnutrition; C34.90 Malignant neoplasm of unspecified part of unspecified bronchus or lung; C79.9 Secondary malignant neoplasm of unspecified site; J18.9 Pneumonia, unspecified organism; Z66 Do not resuscitate; Z51.5 Encounter for palliative care; R13.10 Dysphagia, unspecified; G89.29 Other chronic pain; M54.9 Dorsalgia, unspecified; M79.7 Fibromyalgia; M48.07 Spinal stenosis, lumbosacral region; F17.210 Nicotine dependence, cigarettes, uncomplicated; E87.6 Hypokalemia; E86.0 Dehydration; I10 Essential (primary) hypertension; Z87.820 Personal history of traumatic brain injury; Z79.891 Long term (current) use of opiate analgesic; Z68.20 Body mass index [BMI] 20.0-20.9, adult
CPT/HCPCS: 0241U; 36415; 51701; 71045; 72128; 72131; 80048; 80053; 80076; 81001; 83605; 83690; 83735; 84145; 85025; 87040; 87449; 93005; 93010; 94760; 94762; 96361-59; 96365-59; 96366; 96366-59; 96367-59; 96372; 96375; 96375-59; 96376; 99285-25; A9270; G0378; J0692; J0780; J1170; J1650; J2270; J2405; J3010; J3480; J7030